=== PATIENT | male | born 1985 | race Caucasian/White ===

== ENCOUNTER 2018-11-24 03:32 | Emergency (ER) | payer OTHER ==
[~2018-11-24] VITALS: Ht 188 cm; Wt 92.0 kg
[2018-11-24 03:37] VITALS: BP 136/84
--- NOTE | 2018-11-24 03:49 | NUR ---
PT. HAS BEEN IN BR SINCE BEING WALKED BACK TO ROOM. AWAITING PT. TO RETURN TO ROOM FOR EVAL.
--- NOTE | 2018-11-24 03:55 | NUR ---
PT. LEFT BATHROOM AT THIS TIME; DR. MORGAN AT BS TO [facility] PT.
[2018-11-24] MEDS ORDERED: SODIUM CHLORIDE 0.9% 1,000ML IVBOLUS ONE (04:00)
[2018-11-24] MEDS ORDERED: ONDANSETRON 2MG/ML, 2ML IVPush ONE (04:00)
--- NOTE | 2018-11-24 04:14 | NUR ---
PT. TO ED TODAY WIHT C/O LLQ ABD PAIN, N/V/D X 3 DAYS. STATES 20 EPISODES OF DIARRHEA PER DAY. DR. MORGAN HAD BEEN IN FOR EVAL AND DISCUSSED IV/STOOL SAMPLE/URINE SAMPLE/IVF WITH PT. THIS RN ATTEMPTED IV ACCESS X 1 AND PT. PULLED ARM AWAY AND STATED THAT "I DON'T LIKE NEEDLES AND I AM NOT DOING THIS, I AM GOING HOME." THIS RN OFFERED FOR ANOTHER RN TO COME START IV AND DISCUSSED WITH PT. HOW TO GET HIM TO STAY FOR TESTING AND TREATMENT. PT. STATES "I JUST WANT TO GO HOME, I AM FINE ENOUGH TO GO HOME, I AM SORRY I CAME." THIS RN DISUCSSED WITH PT. TO PLEASE RETURN FOR ANY WORSENING SYMPTOMS OR NEW CONCERNS. PT. VERBALIZED UNDERSTANDING OF THIS. PT. ABLE TO FULLY DRESS SELF AND AMBULATE TO D/C DESK WITH STEADY GAIT. RESP EVEN, NON-LABORED. SKIN PWD AND PT. A&OX 4. DR. MORGAN AWARE. AMA FORM SIGNED BY PT.
== END 2018-11-24 04:19 | disposition left against medical advice (07) ==
LOC: ED 04:10
DX: R11.2 Nausea with vomiting, unspecified (principal); R19.7 Diarrhea, unspecified; R10.32 Left lower quadrant pain; F17.200 Nicotine dependence, unspecified, uncomplicated
CPT/HCPCS: 99281